=== PATIENT | female | born 1980 | race Caucasian/White ===

== ENCOUNTER 2018-11-17 10:38 | Day surgery (SDC) | payer OTHER ==
[2018-11-17] MEDS ORDERED: NS 1,000 ML IV ONE (10:46)
[2018-11-17] MEDS ORDERED: DOXYCYCLINE HYCLATE 100 MG CAP/TAB PO ONE (16:06)
[2018-11-17] MEDS ORDERED: BUPIVACAINE/EPI 0.5% 30 ML SDV ONE (16:19)
[2018-11-17] MEDS ORDERED: PROPOFOL/EMULSION 500 MG/50 ML BOTTLE IV ONE (16:21)
[2018-11-17] MEDS ORDERED: fentaNYL 100 MCG/2 ML INJ ONE (16:25)
[2018-11-17] MEDS ORDERED: MISOPROSTOL 200 MCG TAB ONE (16:30)
[2018-11-17] MEDS ORDERED: LR 1,000 ML IV SCH (16:30)
[2018-11-17] MEDS ORDERED: PROPOFOL 200 MG/20 ML VIAL ONE (17:00)
[2018-11-17] MEDS ORDERED: ACETAMINOPHEN 500 MG TAB PO PRN (17:06)
[2018-11-17] MEDS ORDERED: HYDROCODONE/APAP 5/325 TAB PO PRN (17:06)
[2018-11-17] MEDS ORDERED: oxyCODONE IR 5 MG TAB PO PRN (17:06)
[2018-11-17] MEDS ORDERED: NALOXONE HCL 0.4 MG/ML INJ IVP PRN (17:06)
[2018-11-17] MEDS ORDERED: PROMETHAZINE HCL 25 MG/ML INJ IVP PRN (17:06)
[2018-11-17] MEDS ORDERED: ONDANSETRON 4 MG/2 ML VIAL IVP PRN ×2 (17:06→19:33)
[2018-11-17] MEDS ORDERED: HYDROmorphONE/DILAUDID 1 MG/ML INJ IVP PRN (17:06)
[2018-11-17] MEDS ORDERED: fentaNYL 100 MCG/2 ML INJ IVP PRN (17:06)
[2018-11-17] MEDS ORDERED: METOCLOPRAMIDE 10 MG/2 ML VIAL IVP PRN (17:06)
[2018-11-17] MEDS ORDERED: LR 500 ML IV PRN (17:06)
[2018-11-17] MEDS ORDERED: METHYLERGONOVINE MAL 0.2 MG TAB PO ONE (19:42)
== END 2018-11-17 20:40 | disposition home or self-care (01) ==
DX: O07.1 Delayed or excessive hemorrhage following failed attempted termination of pregnancy (principal); E86.9 Volume depletion, unspecified